=== PATIENT | male | born 1955 | race Caucasian/White ===

== ENCOUNTER 2020-02-11 20:24 | Emergency (ER) | payer OTHER ==
[~2020-02-11] VITALS: Ht 180.3 cm; Wt 78.9 kg
[2020-02-11] MEDS ORDERED: TYLENOL 500 MG. (20:39)
[2020-02-11] MEDS ORDERED: ZITHROMAX500 MG PO (22:33)
[2020-02-11] MEDS ORDERED: DOLOGEN CAPLET1 EACH PO (22:33)
[2020-02-11] MEDS ORDERED: MEDROLPACK PO (22:33)
[2020-02-11] MEDS ORDERED: TUSNEL LIQUID178 ML PO (22:33)
[2020-02-11] MEDS ORDERED: PROAIR RESPICL90 MCG IH (22:33)
== END 2020-02-12 00:24 | disposition home or self-care (01) ==
LOC: ER 20:24
DX: U07.1 COVID-19 (principal); B34.9 Viral infection, unspecified